=== PATIENT | male | born 1960 | race Caucasian/White ===

== ENCOUNTER → 2020-02-01 13:31 | Outpatient (BNVA) | payer BC, SELFPAY | PROVIDERS: Visit Provider Internal Medicine | DX: Z13.89 Encounter for screening for other disorder (principal) ==

== ENCOUNTER 2020-05-27 13:40 | Outpatient (REF) | payer BC, SELFPAY ==
--- NOTE | ~2020-05-27 | XR_ITS ---
EXAMINATION: XR ELBOW, RIGHT CLINICAL INFORMATION: Pain in right elbow COMPARISON: None TECHNIQUE: AP, lateral, and oblique views of the right elbow. FINDINGS: There is a prominent olecranon spur. There is localized soft tissue prominence in the olecranon bursa region. Small amount of calcification noted in the soft tissues posterior and ulnar to the proximal forearm likely dystrophic without clinical significance. No joint effusion. There is no fracture. No arthrosis. XR/XR elbow RT min 3V IMPRESSION: Prominent olecranon spur. Prominence of the soft tissues in the olecranon bursa region likely reflects a olecranon bursitis. Alternatively this could reflect a hematoma. Question history of recent trauma.
== END 2020-05-27 13:41 | disposition home or self-care (01) ==
LOC: HO.HOSX 13:40
PROVIDERS: Visit Provider Physician Assistant
DX: M1A.9XX1 Chronic gout, unspecified, with tophus (tophi) (principal); M25.521 Pain in right elbow; J45.909 Unspecified asthma, uncomplicated; G47.33 Obstructive sleep apnea (adult) (pediatric); Z99.89 Dependence on other enabling machines and devices
CPT/HCPCS: 73080; J1020

== ENCOUNTER 2020-06-08 06:06 | Day surgery (SDC) | payer BC, SELFPAY ==
[2020-06-08 06:15] VITALS: BMI 36.9
[2020-06-08 06:30] VITALS: BP 148/88; PULSE 60; RESP 22; TEMP 37.1; O2SAT 94
[2020-06-08] MEDS: Lactated Ringers 1,000 ML 50 ML IV (06:43)
--- NOTE | 2020-06-08 07:15 | HO.ANESPROP2 ---
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 (Acute) Elbow pain, right (Acute) Asthma (Acute) AMA on CPAP (Acute) Past Medical History Medical History Asthma AMA on CPAP Surgical History Surgical History History of colon resection Hx of tonsillectomy Social History Social History Smoking Status: Never smoker Use of substances other than those prescribed or required for medical reasons: No Advance Directives: No Advance Directives Information Provided: Yes Recently lost weight without trying: No Current occupational status: employed 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 Meds Allergies Allergy/AdvReac Type Severity Reaction Status Date / Time No Known Allergies Allergy Verified 02/01/20 13:31 [No Known Allergies*] Active Medications: Current Medications Generic Name Dose Route Start Last Admin Trade Name Freq PRN Reason Stop Dose Admin Lactated Ringer's 1,000 mls @ 50 mls/hr 06/08/20 07:15 Lr IV .Q20H DWAYNE Home Medications Medication Instructions Recorded Confirmed Last Taken Type naproxen 1 tab PO BID PRN 06/08/20 06/08/20 Unknown History oxycodone 1 tab PO Q6H PRN 06/08/20 06/08/20 Unknown History Exam Exam Date and Time: June 08, 2020 0715 Height,Weight and Vital Signs: Height 5 ft 9 in Weight 113.398 kg Last Vital Signs Temp 98.7 F 06/08/20 06:30 Pulse 60 06/08/20 06:30 Resp 22 H 06/08/20 06:30 BP 148/88 H 06/08/20 06:30 Pulse Ox 94 06/08/20 06:30 Airway Mallampati Class: II TM Dist: >3cm Neck ROM: Full Assessment and Plan Assessment Anesthesia Assessment: Anesthesia Plan Discussed and Chart Reviewed Final Anesthetic Review NPO: Yes ASA Class: II Final Preanesthetic Review: No Changes in Pt Med Stat, Meds/Allgs Chart Reviewed, Consent Obtained/Reviewed and Anes Risks/Benef Reviewed Patient Risk: Intermediate Procedure Risk: Low Assessment/Block/Sedation in SS: Assess/Block/Sedation-SS Anesthetic Plan Anesthetic Plan: GA Disposition: Standard PACU
--- NOTE | 2020-06-08 07:24 | MHC.SHP ---
Pre-Procedural Eval Section A The patient is an INPATIENT: No Changes since office visit: Yes Patient answered all questions; No Cold of Flu in the past 2 weeks, No New Medical Problems and No Changes in Medication The History & Physical has been completed within 30 days and I have reviewed it.: Yes Section B Chief Complaint: gout with tophi Allergies: Allergies Allergy/AdvReac Type Severity Reaction Status Date / Time No Known Allergies Allergy Verified 02/01/20 13:31 [No Known Allergies*] Plan I have reviewed the history and physical and performed a pertinent physical examination on my patient. No changes have occurred unless specified.
[2020-06-08 08:40] VITALS: BP 143/77; PULSE 81; RESP 14; TEMP 36.2; O2SAT 95
--- NOTE | 2020-06-08 08:40 | PM.OP ---
Brief Operative Note Date of Service: 06/08/20 Pre-op diagnosis: right elbow tophaceous bursitis Post-op diagnosis: same Procedure: excision olecramon bursa Implants: none Surgeon: Marlon Kellogg MD Anesthesia: GLMA and local Pilot Can Router: Peggy Jimenez Estimated blood loss (mL): 10 Tourniquet time (min): 30 IV fluids (mL): 500 Pathology: other Condition: stable Disposition: PACU
[2020-06-08 08:45] VITALS: BP 151/90; PULSE 77; RESP 16; O2SAT 97
[2020-06-08 08:50] VITALS: BP 147/95; PULSE 73; RESP 16; O2SAT 92
[2020-06-08 08:55] VITALS: BP 146/94; PULSE 69; RESP 16; O2SAT 92
[2020-06-08 09:10] VITALS: BP 146/83; PULSE 62; RESP 18; TEMP 36.2; O2SAT 93
[2020-06-08] MEDS: Acetaminophen 325 MG TABLET 650 MG PO (09:13)
[2020-06-08] MEDS: oxyCODONE HCl Immed Release 5 MG TABLET PO (09:14)
--- NOTE | 2020-06-10 14:59 | P.OP_ITS ---
Operative Note Operative Note Date of Service: 06/08/20 Narrative: Pre-op diagnosis: right elbow tophaceous bursitis Post-op diagnosis: same Procedure: excision olecramon bursa Implants: none Surgeon: Marlon Kellogg MD Anesthesia: GLMA and local Firm Administrator: Peggy Jimenez Estimated blood loss (mL): 10 Tourniquet time (min): 30 IV fluids (mL): 500 Pathology: other Condition: stable Disposition: PACU Procedure in detail: Patient was brought to the operating room placed supine on the operative table and prepped and draped in standard sterile fashion. Time-out was called in for procedure procedure proper surgeon IV antibiotics per weight were administered. I began by making a longitudinal incision over the olecranon bursa. Once sirs skin the tophaceous gout was clearly visible and this was meticulously removed with the bursa. There was no deep communication was able to resect the entirety of the bursa. I then irrigated copiously and closed the skin with nylon. I then turned my attention to a smaller area of tophi distal to the olecranon bursa and again I made a small incision here and removed the tophaceous material. This again was irrigated copiously closed with nylon. Patient was then placed in a sterile compressive dressing extubated brought to recovery room in stable condition I injected approximately 20 mL of 0.25% Marcaine with epinephrine. Patient tolerated the procedure well there were no known complications.
== END 2020-06-08 09:58 | disposition home or self-care (01) ==
PROVIDERS: Visit Provider Orthopaedic Surgery
PROC: (CPT 24105; principal; 2020-06-08 07:30)
DX: M1A.0211 Idiopathic chronic gout, right elbow, with tophus (tophi) (principal); J45.909 Unspecified asthma, uncomplicated; G47.33 Obstructive sleep apnea (adult) (pediatric); Z99.89 Dependence on other enabling machines and devices; Z79.899 Other long term (current) drug therapy
CPT/HCPCS: 24105; 88304; J0690; J1100; J2250; J2405; J3010

== ENCOUNTER → 2020-06-20 14:03 | Outpatient (BNVA) | payer BC, SELFPAY | PROVIDERS: Visit Provider Physician Assistant ==

== ENCOUNTER 2020-07-25 06:22 | Outpatient (REF) | payer BC, SELFPAY ==
[2020-07-25 07:06] LABS: Hematocrit 46.8 % (42-52); Hemoglobin 16.1 g/dl (14.0-18.0); Mean Corpuscular HGB Conc 34.4 g/dl (31.0-36.0); Mean Corpuscular Hemoglobin 32.2 pg (27.0-33.0); Mean Corpuscular Volume 93.6 fL (80-98); Mean Platelet Volume 10.3 fL (9.4-12.4); Platelet Count 226 X10*3/uL (160-400); Red Cell Distribution Width 12.7 % (11.0-16.0); White Blood Count 7.3 X10*3/uL (4.8-10.8)
[2020-07-25 07:31] LABS: Estimated Average Glucose 157 mg/dL; Hemoglobin A1c % 7.1 %
[2020-07-25 07:40] LABS: Alanine Aminotransferase 84 U/L (0-40); Albumin Level 4.7 g/dL (3.5-5.0); Alkaline Phosphatase 43 U/L (39-117); Anion Gap 14 (12-20); Aspartate Amino Transferase 65 U/L (5-37); Bilirubin Total 1.4 mg/dL (0.0-1.0); Blood Urea Nitrogen 21 mg/dL (9-16); Carbon Dioxide 25 mmol/L (22-29); Chloride 103 mmol/L (96-108); Cholesterol 180 mg/dL; Estimated Glomerular Filt Rate > 60; Glucose Fasting 146 mg/dL (60-99); HDL Cholesterol 37 mg/dL; LDL Cholesterol Calculated 113 mg/dl; Potassium 4.6 mmol/L (3.3-5.1); Sodium 137 mmol/L (135-145); Total Protein 7.7 g/dL (6.5-8.0); Triglycerides 151 mg/dL; Uric Acid 11.7 mg/dL (3.4-7.0)
[2020-07-25 08:06] LABS: Prostate Specific Antigen Scr 1.03 ng/mL (<0.05-4.0); TSH reflex Free T4 1.16 uIU/mL (0.32-4.0)
== END 2020-07-25 06:23 | disposition home or self-care (01) ==
LOC: HO.LAB 06:22
PROVIDERS: PCP Physician Assistant; Visit Provider Physician Assistant
DX: Z12.5 Encounter for screening for malignant neoplasm of prostate (principal); M1A.421 Other secondary chronic gout, right elbow; E66.09 Other obesity due to excess calories; Z68.37 Body mass index [BMI] 37.0-37.9, adult; I10 Essential (primary) hypertension
CPT/HCPCS: 36415; 80053; 80061; 83036; 84153; 84443; 84550; 85027

== ENCOUNTER → 2020-09-07 15:52 | Outpatient (BNVA) | payer BC, SELFPAY | PROVIDERS: PCP Physician Assistant; Visit Provider Internal Medicine ==

== ENCOUNTER 2020-10-12 06:03 | Outpatient (REF) | payer BC, SELFPAY ==
--- NOTE | ~2020-10-12 | XR_ITS ---
EXAMINATION: XR FOOT, RIGHT CLINICAL INFORMATION: Gout pain. Pain 1st MTP joint. COMPARISON: None TECHNIQUE: AP, lateral, and oblique views of the right foot. FINDINGS: There is loss of 1st MTP joint space with mild soft tissue swelling. No overhanging edges or bony erosive changes. The soft tissues are normal. Rest of the visualized right foot is unremarkable. The ankle mortise and subtalar joints are normal. There is a small calcaneal heel and dorsal intertarsal spurring. XR/XR foot RT min 3V IMPRESSION: Mild arthritic changes 1st MTP joint with soft tissue swelling. No visible acute fracture or dislocation seen. Small calcaneal heel and dorsal talonavicular spurring.
[2020-10-12 07:34] LABS: Uric Acid 5.7 mg/dL (3.4-7.0)
[2020-10-12 08:32] LABS: Erythrocyte Sedimentation Rate 10 MM/HR (0-15)
== END 2020-10-12 06:04 | disposition home or self-care (01) ==
LOC: HO.LAB 06:03
PROVIDERS: PCP Physician Assistant; Visit Provider Podiatrist
DX: M10.9 Gout, unspecified (principal)
CPT/HCPCS: 36415; 73630; 84550; 85652

== ENCOUNTER → 2021-03-02 15:49 | Outpatient (BNVA) | payer BC, SELFPAY | PROVIDERS: PCP Physician Assistant; Visit Provider Internal Medicine ==